=== PATIENT | female | born 1995 | race Caucasian/White ===

== ENCOUNTER 2021-10-08 13:03 | Emergency (ER) | payer OTHER ==
[2021-10-08 14:09] LABS: HEMOGLOBIN 14.7 gm/dl (12.3-15.3); RED BLOOD COUNT 4.73 M/UL (4.00-5.10); WHITE BLOOD COUNT 8.9 K/UL (4.5-11.0)
[2021-10-08 14:37] LABS: BUN/CREATININE RATIO 12 (0-10)
[2021-10-08] MEDS ORDERED: MACROBID 100 M100 MG PO (16:00)
== END 2021-10-08 16:09 | disposition home or self-care (01) ==
LOC: ER1 13:03
PROVIDERS: Physician Assistant
DX: O20.0 Threatened abortion (principal); Z3A.11 11 weeks gestation of pregnancy; O23.41 Unspecified infection of urinary tract in pregnancy, first trimester; N39.0 Urinary tract infection, site not specified; O99.331 Smoking (tobacco) complicating pregnancy, first trimester; F17.200 Nicotine dependence, unspecified, uncomplicated
CPT/HCPCS: 80053; 81001; 84702; 84703; 85025; 86850; 86900; 86901; 99284

== ENCOUNTER 2022-04-16 05:49 | Inpatient (IN) | payer OTHER ==
[~2022-04-16] VITALS: Ht 162.6 cm; Wt 92.1 kg
[~2022-04-16 05:49] MED LIST: MACROBID 100 M100 MG PO
[2022-04-16 06:38] LABS: HEMOGLOBIN 11.2 gm/dl (12.3-15.3); WHITE BLOOD COUNT 19.5 K/UL (4.5-11.0)
[2022-04-16] MEDS ORDERED: PRENATABS FA T1 EACH PO (07:11)
[2022-04-16] MEDS ORDERED: IBUPROFEN600 MG PO (16:21)
[2022-04-16] MEDS ORDERED: DOCUSATE SODIU100 MG PO (16:21)
[2022-04-16] MEDS ORDERED: HYDROCODON-ACE1 EAC4 PO (16:21)
[2022-04-17 06:52] LABS: HEMOGLOBIN 10.9 gm/dl (12.3-15.3)
== END 2022-04-19 15:02 | disposition home or self-care (01) | DRG 787 ==
LOC: OB 05:49
PROVIDERS: ADMIT Obstetrics & Gynecology
PROC: 4A1HXCZ Monitoring of Products of Conception, Cardiac Rate, External Approach (ICD-10-PCS; 2022-04-16)
PROC: 10D00Z1 Extraction of Products of Conception, Low, Open Approach (ICD-10-PCS; principal; 2022-04-16 09:14)
DX: O32.1XX0 Maternal care for breech presentation, not applicable or unspecified (principal); O99.324 Drug use complicating childbirth; F11.20 Opioid dependence, uncomplicated; Z20.822 Contact with and (suspected) exposure to COVID-19; O99.824 Streptococcus B carrier state complicating childbirth; Z3A.39 39 weeks gestation of pregnancy; F17.210 Nicotine dependence, cigarettes, uncomplicated; O99.334 Smoking (tobacco) complicating childbirth; Z37.0 Single live birth; Z28.310 Unvaccinated for COVID-19; Z83.3 Family history of diabetes mellitus; Z82.49 Family history of ischemic heart disease and other diseases of the circulatory system; Z80.9 Family history of malignant neoplasm, unspecified
CPT/HCPCS: 36415; 80307; 81001; 82800; 85014; 85018; 85025; C9113; J0690; J1170; J2370; J2405; J2590; J3010; J7120